=== PATIENT | female | born 1970 | race Caucasian/White ===

== ENCOUNTER → 2016-11-28 | Day surgery (SDC) | payer OTHER ==
--- NOTE | 2016-11-27 15:52 | TH ---
cc: JACK QUARLES M.D. DATE: 11/27/2016 DATE OF : 1970 PROCEDURE TO BE PREFORMED; Removal and replace implant with inferior capsulorrhaphies as well as doing lipo. The implants we will be utilizing will be the [id number] to the right and [id number] on the left, Tammilinden leonardojovanny. HISTORY OF PRESENT ILLNESS: This is a otherwise healthy 40-year-old female who wishes to exchange her implants. PAST MEDICAL HISTORY: Her past medical history is otherwise unremarkable. She did have some episodes of sacroiliitis and degenerative L4, L5. She did have multiple Asthenic procedures in the past and a hysterectomy 1999. MEDICATIONS: As needed mediation is Naprosyn Tramadol ALLERGIES Sensitive/allergic to NEOMYCIN AND MORPHINE HABITS: None. REVIEW OF SYSTEMS The review of system otherwise is unremarkable. PHYSICAL EXAMINATION: CONSTITUTIONAL: General appearance. The patient is a well-developed female in no acute distress. Body habitus is within normal limits. There appear to be no deformities. Appears to have attention to grooming. HEENT: Eyes Conjunctivae and lids are within normal anatomical limits. The pupils are reactive to light and accommodation, size, and symmetry. There is no evidence of exudate, hemorrhage, or vessel change. Ears, mouth, nose, and throat The external inspection of the ears and nose fails to demonstrate any pathology, scars, lesions, or masses. Nasal mucosa, septum, and turbinates appear to be well hydrated as well as the lips and gums. No evidence of masses in the hypopharynx or submental area. RESPIRATORY: The patient shows no evidence of intercostal refractions. Otherwise, lungs are clear to auscultation without any abnormal sounds or rubs. CARDIOVASCULAR: The patient has a normal heart rate and rhythm. There is no evidence of noticed carotid bruits. Femoral pulses and pedal pulses in extremities are also within normal limits. GASTROINTESTINAL/ABDOMEN: Soft with no evidence of masses or tenderness. Unable to palpate the liver or spleen. No evidence of hernia. MUSCULOSKELETAL: Appears to be reasonable range of motion on the head, neck, spine, ribs, pelvis, right upper extremity, left upper extremity, right lower extremity, and left lower extremity. The muscle strength and tone appears to be equal and within accepted limits. SKIN: There is no rashes, lesions, or ulcers on the trunk, back, and extremities. NEUROLOGICAL: Examination is grossly normal. PSYCHIATRIC: The patient appears to have good orientation of time, place, and person. Does not appear to have any mood effects of depression, anxiety, or agitation. BREASTS: The breast implants are in good place, well healed inframammary incisions. The area of lipodystrophy is otherwise in the abdomen, flanks and back. RECOMMENDATIONS Removal, and replacement of the implants along with a slim lipoma. MD GUSTAVO Dorman/luz /3:28 PM /3:43 PM
[~2016-11-28] MED LIST: ACETAMINOPHEN 1000 MG/100 ML VIAL IV ONE; ACETAMINOPHEN/HYDROcodone 325 MG/5 MG TAB ONE; BACITRACIN IM FOR SOLN 50,000 UNIT VIAL ONE; BUPIVACAINE/EPINEPHRINE 0.25% 50 ML VIAL ONE; ESTR42.5V PV; GENTAMICIN SULFATE 80 MG/2 ML VIAL ONE; KETOROLAC TROMETHAMINE 30 MG/ML (IVP) VIAL IV PUSH ONE; LACTATED RINGER'S 1000 ML INJ 1,000 ML ONE; LIDOCAINE 1%/EPINEPHrine 1:100,000 SOLN 20 ML VIAL ONE; LIDOCAINE HCL 1% PF 30 ML VIAL ONE; MACR100C PO; MIDAZOLAM HCL 2 MG/2 ML VIAL ONE; NAPR220T95 PO; ONDANSETRON HCL 4 MG/2 ML VIAL IV PUSH ONE; PROPOFOL 200 MG/20 ML AMP IV ONE; SODIUM CHLORIDE 0.9% 20 ML VIAL ONE; ceFAZolin INJ 1,000 MG VIAL ONE
--- NOTE | 2016-11-28 09:54 | TN ---
cc: JACK QUARLES DATE OF SURGERY 11/28/2016 PREOPERATIVE DIAGNOSIS 1. Wishes breast implant with exchange as well as repair of uneven breasts. 2. Correction of slight lipodystrophy. PROCEDURE Removal and replacement of implants Geovany Valenciaira SSX. The right breast 560 cc, serial number [id number]. The left breast SSX Natkiyae Inspire volume 545 cc, serial number [id number]. The lipo contouring around the torso for a grand total in of 1350, total out 525, total joules applied 50,000 joules. PROCEDURE She was properly consented, marked, properly anesthetized. The skin was sterilized with Betadine solution and sterile draping applied. Attention was directed to the breast where we also had injected approximately 30 cc of 1% lidocaine and epinephrine mixed with 0.25% Marcaine in a 2:1 ratio. Through the previous inframammary incision, a trapdoor incision was carried out finding the previous A-Cell dermal matrix, the pocket was opened, the implant was removed. Finding no evidence of pathology, irrigation with triple antibiotic solution was carried out. Lateral inferior capsulorrhaphies were done on the right breast and did on the left breast utilizing 0-silk in a multiple 2-0 bsajwh-ca-kylso fashion. After that was performed utilizing the isolation of the skin and the nipple from the beginning, I introduced the implant with a non-touch technique being the right side 560, the left side 545. The patient was sat up finding the best symmetry possible. The wounds were closed with multiple 2-0 Monocryl sutures in the breast capsule, breast parenchyma, dermis and subcu. Mastisol and Steri-Strips were applied thereafter. Attention was directed to the torso where tumescent fluid was applied. This was then mixed with the following. In 1000 cc of normal saline, I mixed 30 cc of Lidocaine 1% plain and 1 cc epinephrine 1:1000. A tumescent was carried out on the upper and lower abdomen, flanks and back and delivery of the energy was done with a Ec[employer] lipoma technology at 2019 for a grand total of 50,000 joules per square centimeters. Those were distributed at 30,000 for the abdomen, and 10,000 for each flank each. Each and every one of the puncture wounds were done utilizing an 11-blade were closed utilizing 5-0 chromic suture after the evacuation of the effluent was carried out utilizing a 1.5 mm cannula. A grand total of fat removed was 550. Overall. the patient tolerated the procedure well. She was awakened and extubated in the operating room. She was transferred back to the postanesthesia care unit in stable conditions. No complication appreciated. The patient tolerated the procedure fairly well. MD GUSTAVO Dorman/SANYA /9:15 AM /9:45 AM
== END | disposition home or self-care (01) ==
LOC: ESDC 06:26
PROVIDERS: ATTEND Plastic Surgery
DX: Z41.1 Encounter for cosmetic surgery (principal)
CPT/HCPCS: 00300; 00400; 00402; 15877; 19325; 19328; C1789; J0131; J0690; J1580; J1885; J2250; J2405; J3010; J7120